=== PATIENT | female | born 1950 | race Caucasian/White ===

== ENCOUNTER 2018-05-03 08:19 | Day surgery (SDC) | payer OTHER ==
[~2018-05-03 08:19] MED LIST: CALTRATE 600+D1 EAC1 PO; CRESTOR10 MG PO; ELAVIL PO; HYDROCHLOROTHIA25 MG PO; INDUR PO; LEVOTHYROXINE PO; M.V.I. ADULT10 ML IV; NORVASC2.5 MG PO; TOPROL XL50 M1 PO; TRICOR145 MG PO
== END 2018-05-03 15:00 | disposition home or self-care (01) ==
LOC: CIR.AMB 08:19
DX: M75.122 Complete rotator cuff tear or rupture of left shoulder, not specified as traumatic (principal); M13.812 Other specified arthritis, left shoulder; M65.812 Other synovitis and tenosynovitis, left shoulder